=== PATIENT | male | born 1980 | race Two or more races ===

== ENCOUNTER → 2020-05-13 | Outpatient (CLI) | payer OTHER | END | disposition home or self-care (01) | LOC: OFIC 805 10:22 | PROVIDERS: ATTEND Otolaryngology | DX: H93.8X3 Other specified disorders of ear, bilateral (principal); H69.83 Other specified disorders of Eustachian tube, bilateral; J34.3 Hypertrophy of nasal turbinates; J34.2 Deviated nasal septum; G47.33 Obstructive sleep apnea (adult) (pediatric) ==